=== PATIENT | female | born 1965 | race Caucasian/White ===

== ENCOUNTER 2022-11-28 14:44 | Emergency (ER) | payer OTHER, MEDICAID, SELFPAY ==
[2022-11-28] VITALS (15 sets, daily range): BP systolic 109–150; BP diastolic 55–67; PULSE 85–109; RESP 17–27; TEMP 36.9; O2SAT 95–98; BMI 49.6
--- NOTE | 2022-11-28 15:09 | DI.RAD.S_ITS ---
PROCEDURE: XR CHEST 1V INDICATIONS: chest pain TECHNIQUE: One view of the chest was acquired. COMPARISON: None. FINDINGS: Surgical changes and devices: None. Lungs and pleura: Blunting of left costophrenic angle is seen suggestive of trace left pleural effusion. No definite focal infiltrate. No gross pneumothorax. Mediastinum: Mediastinal contours appear normal. Heart size is enlarged. Bones and chest wall: No suspicious bony lesions. Overlying soft tissues appear unremarkable. IMPRESSION: Suggestion of trace left pleural effusion. No definite focal infiltrate. No gross pneumothorax. Dictated by: Montrell Kent M.D. on 11/28/2022 at 16:17 Approved by: Montrell Kent M.D. on 11/28/2022 at 16:17
[2022-11-28 15:27] LABS: Add Manual Diff / Slide Review NO; Basophils Absolute Auto 100 /uL (0-100); Basophils Percent Auto 0.7 % (0-2); Eosinophils Absolute Auto 400 /uL (0-450); Eosinophils Percent Auto 4.2 % (2-4); Hematocrit 39.4 % (36-46); Hemoglobin 12.5 g/dL (12.0-16.0); Lymphocytes Absolute Auto 1400 /uL (1100-4500); Lymphocytes Percent Auto 15.3 % (25-40); Mean Corpuscular HGB Conc 31.9 % (30-36); Mean Corpuscular Hemoglobin 27.3 PG (26-34); Mean Corpuscular Volume 85.5 fL (80-100); Monocytes Absolute Auto 500 /uL (0-900); Monocytes Percent Auto 4.8 % (3-14); Neutrophils Absolute Auto 7100 /uL (1500-7000); Platelet Count 351 X10^3/uL (150-400); Red Cell Distribution Width 14.5 % (11.6-14.8); White Blood Cell Count 9.5 X10^3/uL (4.5-11.0)
[2022-11-28 15:32] LABS: Prothrombin Time 11.3 SECONDS (10.1-12.7)
[2022-11-28 15:35] LABS: PTT Partial Thromboplastin Tim 31 SECONDS (26-36)
[2022-11-28 15:46] LABS: Alanine Aminotransferase 29 IU/L (<35); Albumin 3.9 g/dL (3.5-5.0); Albumin Globulin Ratio 1.3 (1.0-2.8); Alkaline Phosphatase 64 U/L (38-126); Aspartate Aminotransferase 25 IU/L (14-36); BUN Creatinine Ratio 32.1 (6-22); Bilirubin Total 0.3 mg/dL (0.2-1.3); Blood Urea Nitrogen 26 mg/dL (7-17); Carbon Dioxide 29 mmol/L (22-32); Chloride 99 mmol/L (98-107); Creatine Kinase 31 U/L (30-135); Estimated Glomerular Filt Rate > 60 mL/min (>60); Globulin 3.1 g/dL (1.7-4.1); Glucose 340 mg/dL (70-100); HEMOLYSIS < 15 (0-50); Lipase 101 U/L (23-300); Potassium 4.4 mmol/L (3.4-5.1); Sodium 137 mmol/L (137-145)
[2022-11-28 15:50] LABS: COVID19 -Nasal RAPID Negative (Negative)
[2022-11-28 15:57] LABS: Troponin I < 0.012 ng/mL (0.01-0.034)
--- NOTE | 2022-11-28 17:55 | ED.DIZZY ---
HPI - Dizziness General Chief Complaint: Dizziness Stated Complaint: Jaw pain, Dizzy Time Seen by Provider: 11/28/22 17:54 Source: patient Mode of arrival: Wheelchair History of Present Illness HPI Narrative: Patient 57-year-old female morbidly obese history of asthma and diabetes presenting today with 3 days of intermittent dizziness. She reports that she is been dizzy every time she stands up. However she waits she is stable able to walk. Today she woke up with left-sided ear pain and jaw pain. She feels like it might be a little bit swollen appear head she denies any dental pain no fevers or chills. She occasionally has palpitations but no real chest pain. She is not any more short of breath than normal no nausea vomiting. No numbness tingling or weakness. She is having no difficulty swallowing her managing her own secretions Related Data Allergies Allergy/AdvReac Type Severity Reaction Status Date / Time No Known Drug Allergies Allergy Verified 11/28/22 14:52 Review of Systems Review of Systems ROS Unobtainable: All systems reviewed & are unremarkable except as noted in HPI and below Patient History Social History Smoking Status: Never smoker Smoking Status: Never smoker Substance Use Type: does not use Exam Initial Vital Signs Initial Vital Signs: Vital Signs Temperature 98.4 F 11/28/22 14:53 Pulse Rate 98 H 11/28/22 14:53 Respiratory Rate 22 11/28/22 14:53 Blood Pressure 150/65 H 11/28/22 14:53 Pulse Oximetry 96 11/28/22 14:53 Oxygen Delivery Method Nasal Cannula 11/28/22 14:53 Oxygen Flow Rate 1 11/28/22 14:53 GENERAL: Alert 57-year-old female sitting at edge of bed HEENT: Head atraumatic,EOMI, pupils reactive, face symmetric, moist mucous membranes Inside mouth no dental cavities or dental abscess left cheek does appear swollen but she does not seem to notice it due to body habitus difficult to tell but no appreciated cervical lymphadenopathy CARDIOVASCULAR: Regular rate and rhythm without murmurs, rubs or gallops. RESPIRATORY: Breath sounds equal bilaterally, no wheezes rales or rhonchi. ABDOMEN: Soft, nontender. Normoactive bowel sounds all 4 quadrants. No guarding or rebound. EXTREMITIES: Normal range of motion, no clubbing or edema. Neurovascularly intact NEUROLOGICAL: Alert and oriented x4.Normal gait and speech. Cranial nerves II through XII grossly intact. Good [id number], good [id number], strength equal bilaterally, no dysarthria or aphasia, sensation in tact to soft touch bilaterally, no visual changes, no facial droop SKIN: Warm, dry, no laceration, no petechiae, no rashes or lesions. Course Orders Ordered: ED Orders 11/28/22 18:34 CT soft tissue neck w con Stat Discontinued Medications Aspirin (Aspirin 81 Mg Chew Tab) 324 mg PO NOW ONE Stop: 11/28/22 15:10 Last Admin: 11/28/22 15:48 Dose: Not Given Documented By: VALERIE Ketorolac Tromethamine (Ketorolac 30 Mg/Ml Vial) 15 mg IV NOW ONE Stop: 11/28/22 20:02 Last Admin: 11/28/22 20:06 Dose: 15 mg Documented By: HERNANDEZ Vital Signs Vital signs: Vital Signs - 8 hr 11/28/22 17:30 11/28/22 17:30 11/28/22 18:00 Pulse Rate 105 H 94 H Respiratory Rate 19 17 Blood Pressure 128/59 L Pulse Oximetry 97 97 Oxygen Delivery Method Nasal Cannula Nasal Cannula Oxygen Flow Rate 2 2 11/28/22 18:30 11/28/22 19:02 11/28/22 19:30 Pulse Rate 94 H 91 H 85 Respiratory Rate 20 22 22 Blood Pressure Pulse Oximetry 96 97 95 Oxygen Delivery Method Oxygen Flow Rate 11/28/22 20:00 11/28/22 20:27 11/28/22 20:27 Pulse Rate 90 87 Respiratory Rate 23 23 Blood Pressure 109/67 Pulse Oximetry 96 96 Oxygen Delivery Method Oxygen Flow Rate 11/28/22 20:30 Pulse Rate 91 H Respiratory Rate 27 H Blood Pressure Pulse Oximetry Oxygen Delivery Method Oxygen Flow Rate MDM - Dizziness Lab Data 11/28/22 15:15 11/28/22 15:15 Labs: Lab Results 11/28/22 11/28/22 11/28/22 Range/Units 15:15 15:15 15:15 WBC 9.5 (4.5-11.0) X10^3/uL RBC 4.60 (4.0-5.2) X10^6/uL Hgb 12.5 (12.0-16.0) g/dL Hct 39.4 (36-46) % MCV 85.5 (80-100) fL MCH 27.3 (26-34) PG MCHC 31.9 (30-36) % RDW 14.5 (11.6-14.8) % Plt Count 351 (150-400) X10^3/uL Neut % (Auto) 75.0 (50-75) % Lymph % (Auto) 15.3 L (25-40) % [place] % (Auto) 4.8 (3-14) % Eos % (Auto) 4.2 H (2-4) % Baso % (Auto) 0.7 (0-2) % Neut # (Auto) 7100 H (4192-7371) /uL Lymph # (Auto) 1400 (3671-5927) /uL [place] # (Auto) 500 (0-900) /uL Eos # (Auto) 400 (0-450) /uL Baso # (Auto) 100 (0-100) /uL PT 11.3 (10.1-12.7) SECONDS INR 1.0 (0.9-1.3) APTT 31 (26-36) SECONDS Sodium 137 (137-145) mmol/L Potassium 4.4 (3.4-5.1) mmol/L Chloride 99 (98-107) mmol/L Carbon Dioxide 29 (22-32) mmol/L BUN 26 H (7-17) mg/dL Creatinine 0.81 (0.52-1.04) mg/dL Estimated GFR > 60 (>60) mL/min BUN/Creatinine Ratio 32.1 H (6-22) Glucose 340 H (70-100) mg/dL Calcium 9.0 (8.4-10.2) mg/dL Magnesium 2.0 (1.6-2.3) mg/dL Total Bilirubin 0.3 (0.2-1.3) mg/dL AST 25 (14-36) IU/L ALT 29 (<35) IU/L Alkaline Phosphatase 64 (38-126) U/L Total Creatine Kinase 31 (30-135) U/L CK-MB (CK-2) TNP CK-MB (CK-2) Rel Index TNP Troponin I < 0.012 (0.01-0.034) ng/mL Total Protein 7.0 (6.3-8.2) g/dL Albumin 3.9 (3.5-5.0) g/dL Globulin 3.1 (1.7-4.1) g/dL Albumin/Globulin Ratio 1.3 (1.0-2.8) Lipase 101 (23-300) U/L SARS-CoV-2 (PCR) (Negative) 11/28/22 Range/Units 15:27 WBC (4.5-11.0) X10^3/uL RBC (4.0-5.2) X10^6/uL Hgb (12.0-16.0) g/dL Hct (36-46) % MCV (80-100) fL MCH (26-34) PG MCHC (30-36) % RDW (11.6-14.8) % Plt Count (150-400) X10^3/uL Neut % (Auto) (50-75) % Lymph % (Auto) (25-40) % [place] % (Auto) (3-14) % Eos % (Auto) (2-4) % Baso % (Auto) (0-2) % Neut # (Auto) (0453-2182) /uL Lymph # (Auto) (1522-1335) /uL [place] # (Auto) (0-900) /uL Eos # (Auto) (0-450) /uL Baso # (Auto) (0-100) /uL PT (10.1-12.7) SECONDS INR (0.9-1.3) APTT (26-36) SECONDS Sodium (137-145) mmol/L Potassium (3.4-5.1) mmol/L Chloride (98-107) mmol/L Carbon Dioxide (22-32) mmol/L BUN (7-17) mg/dL Creatinine (0.52-1.04) mg/dL Estimated GFR (>60) mL/min BUN/Creatinine Ratio (6-22) Glucose (70-100) mg/dL Calcium (8.4-10.2) mg/dL Magnesium (1.6-2.3) mg/dL Total Bilirubin (0.2-1.3) mg/dL AST (14-36) IU/L ALT (<35) IU/L Alkaline Phosphatase (38-126) U/L Total Creatine Kinase (30-135) U/L CK-MB (CK-2) CK-MB (CK-2) Rel Index Troponin I (0.01-0.034) ng/mL Total Protein (6.3-8.2) g/dL Albumin (3.5-5.0) g/dL Globulin (1.7-4.1) g/dL Albumin/Globulin Ratio (1.0-2.8) Lipase (23-300) U/L SARS-CoV-2 (PCR) Negative (Negative) Urine Dip Bedside Urine Glucose 1000 mg/dl Bedside Urine Bilirubin - Negative Bedside Urine Ketone - Negative Urine Specific [place] 1.020 Bedside Urine Occult Blood - Negative Bedside Urine pH 5.5 Bedside Urine Protein - Negative Bedside Urine Urobilinogen - Negative Bedside Urine Nitrite - Negative Bedside Urine Leukocytes - Negative Esterase Imaging Data Chest x-ray: Radiologist's Impression: PROCEDURE:? XR CHEST 1V ? INDICATIONS:? chest pain ? TECHNIQUE:? One view of the chest was acquired.? ? COMPARISON:? None. ? FINDINGS:? ? Surgical changes and devices:? None.? ? Lungs and pleura:? Blunting of left costophrenic angle is seen suggestive of trace left pleural effusion.? No definite focal infiltrate.? No gross pneumothorax. ? Mediastinum:? Mediastinal contours appear normal.? Heart size is enlarged.? ? Bones and chest wall:? No suspicious bony lesions.? Overlying soft tissues appear unremarkable.? ? IMPRESSION:? Suggestion of trace left pleural effusion.? No definite focal infiltrate.? No gross pneumothorax. ? ? Dictated by: Montrell Kent M.D. on 11/28/2022 at 16:17 ? ? st soft tissue: Radiologist's Impression: PROCEDURE:? CT SOFT TISSUE NECK W CON ? INDICATIONS:? left sided swelling and pain ? TECHNIQUE:? After the administration of intravenous contrast, 3.0 mm axial sections acquired from the sella to the aortic arch.? Additional oblique axial 3.0 mm sections acquired through the pharynx.? 3 mm thick coronal and sagittal reformats were generated.? For radiation dose reduction, the following was used:? automated exposure control.? ? COMPARISON:? None. ? FINDINGS:? Image quality:? Excellent.? ? Lymph nodes:? No enlarged lymph nodes seen throughout the neck.? ? Vessels:? Visualized vasculature appears patent.? ? Neck spaces:? The oropharynx, nasopharynx, and pharynx demonstrate no mucosal lesions.? The vocal cords, false vocal cords, pyriform sinuses, epiglottis, vallecula, and tongue base all appear normal.? Extramucosal spaces appear unremarkable.? ? Glands:? The left parotid gland is slightly more prominent in size compared to the right side.? No significant adjacent subcutaneous fat stranding overlying skin thickening is noted.? No discrete parotid gland mass is seen.? The submandibular glands appear normal.? Thyroid gland is within normal limits. ? Miscellaneous:? Visualized brain and orbits appear normal.? Lung apices appear clear.? Superficial soft tissues appear normal. ? Bones:? No suspicious bony lesions.? Visualized sinuses and mastoids appear unremarkable. ? ? ? IMPRESSION:? 1. Finding may represent mild left-sided parotiditis, suggest clinical correlation. ? 2. No soft tissue abscess collection is seen.? Airway is patent. ? 3. No neck soft tissue lymphadenopathy by size criteria. ? ? Dictated by: Montrell Kent M.D. on 11/28/2022 at 19:18 ?? ECG Data Interpretation: Normal sinus rhythm rate 94 FL interval 154 QRS [address] changes or ischemia MDM Narrative Medical decision making narrative: Patient is a 57-year-old female morbid obesity asthma presenting today with left-sided jaw pain she pain and dizziness upon standing. Due to body habitus difficult to tell if she is actually swollen but inside her cheek is more swollen. No airway compromise. CT soft tissue neck does confirm a parotitis. She is no leukocytosis she is afebrile no evidence of sepsis. This can be treated with supportive care no need for antibiotics. She is dizzy when she stands up and then it gets better. No hypotension. She has been drinking fluids. She is given Toradol which does seem to help. Other blood work is otherwise reassuring no electrolyte abnormality LISS liver enzymes elevated troponin. Discharge Plan Departure Patient Disposition: Home Clinical Impression: Acute parotitis Instructions: DI for Parotitis-Adult Activity Restrictions/Additional Instructions: *You have been diagnosed with parotitis *What to do: At this time may try ice sucking on sour candies and anti-inflammatory medications. Hopefully this improves over the next couple of days. No need for antibiotics at this time. Be sure to stay hydrated *Continue to take medications as directed Ibuprofen 600 mg every 6 hours if needed for [id number] pain *Follow up with your primary care provider in 2-3 days or call [phone] *Return to ER if you should have increasing pain swelling fever inability to swallow own spit or any new, worsening or concerning symptoms Stand Alone Forms: Patient Portal/API
--- NOTE | 2022-11-28 18:34 | DI.CT.S_ITS ---
PROCEDURE: CT SOFT TISSUE NECK W CON INDICATIONS: left sided swelling and pain TECHNIQUE: After the administration of intravenous contrast, 3.0 mm axial sections acquired from the sella to the aortic arch. Additional oblique axial 3.0 mm sections acquired through the pharynx. 3 mm thick coronal and sagittal reformats were generated. For radiation dose reduction, the following was used: automated exposure control. COMPARISON: None. FINDINGS: Image quality: Excellent. Lymph nodes: No enlarged lymph nodes seen throughout the neck. Vessels: Visualized vasculature appears patent. Neck spaces: The oropharynx, nasopharynx, and pharynx demonstrate no mucosal lesions. The vocal cords, false vocal cords, pyriform sinuses, epiglottis, vallecula, and tongue base all appear normal. Extramucosal spaces appear unremarkable. Glands: The left parotid gland is slightly more prominent in size compared to the right side. No significant adjacent subcutaneous fat stranding overlying skin thickening is noted. No discrete parotid gland mass is seen. The submandibular glands appear normal. Thyroid gland is within normal limits. Miscellaneous: Visualized brain and orbits appear normal. Lung apices appear clear. Superficial soft tissues appear normal. Bones: No suspicious bony lesions. Visualized sinuses and mastoids appear unremarkable. IMPRESSION: 1. Finding may represent mild left-sided parotiditis, suggest clinical correlation. 2. No soft tissue abscess collection is seen. Airway is patent. 3. No neck soft tissue lymphadenopathy by size criteria. Dictated by: Montrell Kent M.D. on 11/28/2022 at 19:18 Approved by: Montrell Kent M.D. on 11/28/2022 at 19:22
[2022-11-28] MEDS: KETOROLAC 30 MG/ML VIAL 15 MG IV (20:06)
== END 2022-11-28 20:53 | disposition home or self-care (01) ==
PROVIDERS: Emergency Medicine; Emergency Provider Emergency Medicine
DX: K11.21 Acute sialoadenitis (principal); R07.9 Chest pain, unspecified; H92.02 Otalgia, left ear; R00.2 Palpitations; Z20.822 Contact with and (suspected) exposure to COVID-19
CPT/HCPCS: 36415; 70491; 71045; 80053; 81003; 82550; 83690; 83735; 84484; 85025; 85610; 85730; 87635; 93005; 93010; 96374; 99284; 99285; C9803; J1885

== ENCOUNTER 2025-03-02 19:49 | Inpatient (IN) | payer MEDICARE, SELFPAY ==
[2025-03-02] VITALS (15 sets, daily range): BP systolic 93–136; BP diastolic 45–62; PULSE 92–119; RESP 14–39; TEMP 36.9; O2SAT 97–99; BMI 44.6
--- NOTE | 2025-03-02 20:23 | DI.RAD.S_ITS ---
PROCEDURE: XR CHEST 1V INDICATIONS: weakness TECHNIQUE: One view of the chest was acquired. COMPARISON: [facility], CR, XR CHEST 1V, 11/28/2022, 15:16. FINDINGS: Surgical changes and devices: None. Lungs and pleura: Lungs are clear. No pleural effusions or pneumothorax. Mediastinum: Mediastinal contours appear normal. Heart size is enlarged. Bones and chest wall: No suspicious bony lesions. Overlying soft tissues appear unremarkable. IMPRESSION: No acute cardiopulmonary abnormality is seen. Dictated by: Toro Valdes M.D. on 03/02/2025 at 21:04 Approved by: Toro Valdes M.D. on 03/02/2025 at 21:04
--- NOTE | 2025-03-02 20:25 | ED.GENADULT ---
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 States that over the past week she has been feeling slight fatigue weakness and dizziness, states that she felt like she was going to pass out today, states that she did check her sugar and was high at 465. She also states that she wears 2 L nasal cannula at baseline. Otherwise she is not complaining of any actual headache visual disturbance chest pain shortness of breath fever chills nausea vomiting abdominal pain or any other GI/ symptoms time. Related Data Allergies Allergy/AdvReac Type Severity Reaction Status Date / Time No Known Drug Allergies Allergy Verified 11/28/22 14:52 Review of Systems Review of Systems Narrative: General: Positive generalized fatigue, weakness, elevated blood sugars Denies fever, chills, weight loss HEENT: Denies headache, eye drainage, eye irritation, head trauma, sore throat, voice change Cardiovascular: Denies any chest pain, palpitations, tachycardia Respiratory: Denies any shortness of breath, cough, wheeze, stridor GI/: Denies any abdominal pain, nausea, vomiting, diarrhea, bright red blood per rectum, melanotic stools, urinary frequency, urinary retention, dysuria, hematuria MSK: Denies any joint pain, muscle pains, swelling Skin: Denies any rashes, lesions, discoloration Neuro: Denies any headache, lightheadedness, dizziness, fainting, weakness Psych: Denies SI/HI Patient History Smoking Status: Never smoker Exam Narrative Exam Narrative: General: Cooperative, well-developed, not in acute distress HEENT: Normocephalic, atraumatic, PERRLA, normal sclera, eyelids normal Neck: Active full range of motion, atraumatic Chest: Normal to inspection, negative crepitus, no overlying erythema ecchymosis Respiratory: Patient on 2 L nasal cannula at baseline Normal respiratory effort, not in acute respiratory distress, clear to auscultation bilaterally negative cough, wheeze, tachypnea, rhonchi, rales Cardiology: Regular rate rhythm negative gallop, murmur, rubs GI/: No tenderness to palpation, soft, non rigid, normal to inspection, exam deferred MSK: Full active range of motion in all 4 extremities, atraumatic, no tenderness to palpation of any bony prominences Skin: No rashes or lesions noted Neuro: Alert awake oriented x3, moves all 4 extremities spontaneously, cranial nerves intact, able to answer all questions appropriately follows commands appropriately Psych: Cooperative, negative suicidal or homicidal ideations Initial Vital Signs Initial Vital Signs: Vital Signs Temperature 98.5 F 03/02/25 19:53 Pulse Rate 119 H 03/02/25 19:53 Respiratory Rate 22 03/02/25 19:53 Blood Pressure 101/58 L 03/02/25 19:53 Pulse Oximetry 98 03/02/25 19:53 Oxygen Delivery Method Nasal Cannula 03/02/25 19:53 Oxygen Flow Rate 2 03/02/25 19:53 Course Orders Ordered: ED Orders 03/02/25 20:23 XR chest 1V Stat EKG-12 Lead Stat VBG [Venous Blood Gas] STAT 03/02/25 20:24 Urinalysis and Microscopic Stat 03/02/25 20:36 Venous Blood Gas Routine 03/02/25 20:38 A1C [Hemoglobin A1C% w Est Avg Glu] Stat Complete Blood Count AUTO DIFF Stat Comprehensive Metabolic Panel Stat Ketones (Beta-Hydroxybutyrate) Stat Lipase Stat MAG [Magnesium] Stat Troponin & CK Cardiac Panel Stat Sodium Chloride (Normal Saline 0.9%) 1,000 mls @ 1,000 mls/hr IV BOLUS ONE Stop: 03/02/25 21:22 Last Admin: 03/02/25 20:45 Dose: 1,000 mls/hr Documented By: LM Discontinued Medications Ondansetron HCl (Ondansetron 4 Mg/2 Ml Inj) 4 mg IV NOW ONE Stop: 03/02/25 20:24 Vital Signs Vital signs: Vital Signs - 8 hr 03/02/25 19:53 03/02/25 19:59 Temperature 98.5 F Pulse Rate 119 H 114 H Respiratory Rate 22 22 Blood Pressure 101/58 L 114/56 L Pulse Oximetry 98 97 Oxygen Delivery Method Nasal Cannula Nasal Cannula Oxygen Flow Rate 2 2 Medical Decision Making Differential Diagnosis Differential Diagnosis: ACS, pneumonia, electrolyte abnormality, DKA, diverticulitis, diverticular Lab Data 03/02/25 20:38 03/02/25 20:38 Labs: Lab Results 03/02/25 03/02/25 03/02/25 Range/Units 20:07 20:36 20:38 WBC 10.4 (4.5-11.0) X10^3/uL RBC 3.68 L (4.0-5.2) X10^6/uL Hgb 8.3 L (12.0-16.0) g/dL Hct 26.2 L (36-46) % MCV 71.2 L (80-100) fL MCH 22.5 L (26-34) PG MCHC 31.7 (30-36) % RDW 17.2 H (11.6-14.8) % Plt Count 492 H (150-400) X10^3/uL Neut % (Auto) 75.0 (50-75) % Lymph % (Auto) 15.5 L (25-40) % [place] % (Auto) 4.9 (3-14) % Eos % (Auto) 4.0 (2-4) % Baso % (Auto) 0.6 (0-2) % Neut # (Auto) 7800 H (2018-7337) /uL Lymph # (Auto) 1600 (3969-4090) /uL [place] # (Auto) 500 (0-900) /uL Eos # (Auto) 400 (0-450) /uL Baso # (Auto) 100 (0-100) /uL VBG pH 7.46 H (7.33-7.43) VBG pCO2 34.3 L (45-50) mmHg VBG pO2 38 (35-45) mmHg VBG HCO3 24 (24-28) mmol/L VBG Total CO2 23 L (24-29) mmol/L VBG O2 Saturation 76 H (70-75) % VBG Base Excess 0.8 (0-4) mmol/L Sodium 133 L (137-145) mmol/L Potassium 4.3 (3.4-5.1) mmol/L Chloride 98 (98-107) mmol/L Carbon Dioxide 26 (22-32) mmol/L BUN 36 H (7-17) mg/dL Creatinine 1.55 H (0.52-1.04) mg/dL Estimated GFR 38 L (>60) mL/min BUN/Creatinine Ratio 23.2 H (6-22) Glucose 290 H (70-99) mg/dL POC Whole Bld Glucose 322 H (70-99) mg/dL Hemoglobin A1c 8.0 H (4.0-6.0) % Calcium 9.2 (8.4-10.2) mg/dL Magnesium 2.3 (1.6-2.3) mg/dL Total Bilirubin 0.2 (0.2-1.3) mg/dL AST 28 (14-36) IU/L ALT 27 (<35) IU/L Alkaline Phosphatase 71 (38-126) U/L Total Creatine Kinase 37 (30-135) U/L Troponin I < 0.012 (0.01-0.034) ng/mL Total Protein 6.9 (6.3-8.2) g/dL Albumin 4.0 (3.5-5.0) g/dL Globulin 2.9 (1.7-4.1) g/dL Albumin/Globulin Ratio 1.4 (1.0-2.8) Lipase 149 (23-300) U/L Ketones 0.09 (<0.27) mmol/L Point of Care Testing Glucose POC 322 Point of care testing: Point of Care Testing Glucose POC 322 Imaging Data Chest x-ray: Radiologist's Impression: [address] [address] XRay Report Signed Patient: Vivien Santos MR#: [id number] : 1965 Acct:[id number] Age/Sex: 59 / F Date of Service: 03/02/25 Loc: ED Accession Number: [id number] Procedure: XR chest 1V Ordering Provider: Jhonathan Elizabeth D.O. PROCEDURE: XR CHEST 1V INDICATIONS: weakness TECHNIQUE: One view of the chest was acquired. COMPARISON: [facility], , XR CHEST 1V, 11/28/2022, 15:16. FINDINGS: Surgical changes and devices: None. Lungs and pleura: Lungs are clear. No pleural effusions or pneumothorax. Mediastinum: Mediastinal contours appear normal. Heart size is enlarged. Bones and chest wall: No suspicious bony lesions. Overlying soft tissues appear unremarkable. IMPRESSION: No acute cardiopulmonary abnormality is seen. CTA abdomen: Radiologist's Impression: [address] [address] [address] Scan Report Signed Patient: Vivien Santos MR#: [id number] : 1965 Acct:[id number] Age/Sex: 59 / F Date of Service: 03/02/25 Loc: ED Accession Number: [id number] Procedure: CT angio abdomen pelvis Ordering Provider: Jhonathan Elizabeth D.O. PROCEDURE: CT ANGIO ABDOMEN PELVIS INDICATIONS: Abdominal pain with positive Hemoccult TECHNIQUE: After the administration of intravenous contrast, 2.5 mm sections acquired from the diaphragm to the iliac crests. 10 mm maximum intensity projection (MIP) coronal and sagittal reformats were then performed. For radiation dose reduction, the following was used: automated exposure control. COMPARISON: None. FINDINGS: Image quality: Suboptimal due to contrast timing Abdominal aorta: No aortic aneurysm or evidence of acute aortic syndrome. Mesenteric arteries: Patent without hemodynamically significant stenosis. Renal arteries: Patent without hemodynamically significant stenosis. Lower chest: Unremarkable. ABDOMEN: Liver: No solid mass. Severe steatosis. Edge blunting. Gallbladder: No radiopaque gallstones or wall thickening. Biliary ducts: No biliary dilation. Pancreas: No ductal dilation. Spleen: Size is within normal limits. Adrenal Glands: No adrenal nodules. Kidneys and Ureters: No hydronephrosis. No solid mass. No complex renal cystic lesion which requires follow up. Stomach and Bowel: Normal colonic caliber, without significant wall thickening. No significant diverticular disease. No obstructing mass. Peritoneum: No abnormal intraperitoneal fluid. No free air. Ventral Wall: No hernia. Abdominal Nodes: No retroperitoneal or mesenteric adenopathy by size criteria. Vessels: Aorta, as above. Normal IVC. PELVIS: Pelvic Organs: Unremarkable. Bladder: Unremarkable. Pelvic Nodes: No enlarged lymph nodes. Miscellaneous: No inguinal hernias are seen. Bones: No aggressive osseous abnormality. IMPRESSION: Suboptimal due to contrast timing. No definite evidence of active hemorrhage. No significant diverticular disease. Consider outpatient GI referral for a diagnostic colonoscopy in the setting of GI bleeding. Severe hepatic steatosis and edge blunting, possibly early cirrhotic morphology. ECG Data Interpretation: EKG interpreted ED physician sinus 99 beats per minute QTC 444, left axis deviation nonspecific ST changes no STEMI MDM Narrative Medical decision making narrative: Patient is a 59-year-old female with a past medical history of diabetes, AFib on Eliquis, chronic oxygen use for unknown reason according to patient, normally requires 2 L nasal cannula. Comes into the ED from home for evaluation of generalized fatigue weakness light-headedness ongoing persistent for the past week. She denies any trauma or falls denies any chest pain shortness breath at this time. She did state that she checked her sugars at home and it was high. Patient not in DKA per workup here. Patient is at her baseline 2 L nasal cannula. Patient without any leukocytosis, patient is noted to have slight LISS at 1.55, fluids have already been ordered for this, troponins negative, however lab work does show mild anemia at 8.3, patient states that she has had intermittent darker stools over the past month. But denies any bright red blood per rectum. Patient with faint Hemoccult positive. Patient with mild belly pain therefore CTA angio abdomen was ordered did not show any active diverticular bleed, however was suboptimal due to timing. At this time I do not believe patient will require transfusion but her persistent and worsening symptoms possibly secondary to her anemia. 2245: Discussed case with general surgeon Dr. Jin, does state that he is willing to do colonoscopy given patient with lower GI bleed. States that he will discuss this in the morning for planning for prep. In the meantime admit to medicine. The patient's management plan was discussed Dr. Briggs, who agrees to admit the patient to their service and assumes care of this patient at this time. Full admission orders will be placed by the primary team. Discharge Plan Departure Patient Disposition: Admitted As Inpatient Clinical Impression: Acute lower GI bleeding, Anemia Admit Date/Time: 03/02/25 22:52 Admit Provider: Cisco Briggs
--- NOTE | 2025-03-02 20:30 | EKG_ITS ---
[address] [address] Test Date: 2025-03-02 Pat Name: Vivien Santos Department: [facility] Room: Gender: Female Cryptozoologist: MARTIN : 1965 Requested By: Order Number: [id number] Reading MD: Tobin Bowman Measurements Intervals [place] Rate: 99 P: 85 NC: 180 QRS: -25 QRSD: 86 T: 34 QT: 346 QTc: 444 Interpretive Statements Normal sinus rhythm Possible Anterolateral infarct , age undetermined Electronically Signed On 03-18-2025 8:05:14 PDT by Tobin Bowman
[2025-03-02 20:40] LABS: Base Excess VBG 0.8 mmol/L (0-4); HCO3 VBG 24 mmol/L (24-28); Oxygen Saturation VBG 76 % (70-75); PCO2 VBG 34.3 mmHg (45-50); PO2 VBG 38 mmHg (35-45); Total CO2 VBG 23 mmol/L (24-29); pH VBG 7.46 (7.33-7.43)
[2025-03-02] MEDS: SODIUM CHLORIDE 0.9% 1,000 ML 1000 ML IV (20:45)
[2025-03-02 20:53] LABS: Add Manual Diff / Slide Review NO; Hematocrit 26.2 % (36-46); Hemoglobin 8.3 g/dL (12.0-16.0); Lymphocytes Absolute Auto 1600 /uL (1100-4500); Mean Corpuscular HGB Conc 31.7 % (30-36); Mean Corpuscular Hemoglobin 22.5 PG (26-34); Mean Corpuscular Volume 71.2 fL (80-100); Platelet Count 492 X10^3/uL (150-400)
[2025-03-02 21:03] LABS: Alanine Aminotransferase 27 IU/L (<35); Albumin 4.0 g/dL (3.5-5.0); Albumin Globulin Ratio 1.4 (1.0-2.8); Alkaline Phosphatase 71 U/L (38-126); Blood Urea Nitrogen 36 mg/dL (7-17); Calcium 9.2 mg/dL (8.4-10.2); Carbon Dioxide 26 mmol/L (22-32); Chloride 98 mmol/L (98-107); Creatine Kinase 37 U/L (30-135); Estimated Glomerular Filt Rate 38 mL/min (>60); Globulin 2.9 g/dL (1.7-4.1); Glucose 290 mg/dL (70-99); HEMOLYSIS < 15 (0-50); Lipase 149 U/L (23-300); Potassium 4.3 mmol/L (3.4-5.1); Sodium 133 mmol/L (137-145); Total Protein 6.9 g/dL (6.3-8.2)
[2025-03-02 21:07] LABS: Hemoglobin A1C% w Est Avg Glu 8.0 % (4.0-6.0); Magnesium 2.3 mg/dL (1.6-2.3)
[2025-03-02 21:10] LABS: Ketones (Beta-Hydroxybutyrate) 0.09 mmol/L (<0.27)
[2025-03-02 21:17] LABS: Troponin I < 0.012 ng/mL (0.01-0.034)
--- NOTE | 2025-03-02 21:35 | DI.CT.S_ITS ---
PROCEDURE: CT ANGIO ABDOMEN PELVIS INDICATIONS: Abdominal pain with positive Hemoccult TECHNIQUE: After the administration of intravenous contrast, 2.5 mm sections acquired from the diaphragm to the iliac crests. 10 mm maximum intensity projection (MIP) coronal and sagittal reformats were then performed. For radiation dose reduction, the following was used: automated exposure control. COMPARISON: None. FINDINGS: Image quality: Suboptimal due to contrast timing Abdominal aorta: No aortic aneurysm or evidence of acute aortic syndrome. Mesenteric arteries: Patent without hemodynamically significant stenosis. Renal arteries: Patent without hemodynamically significant stenosis. Lower chest: Unremarkable. ABDOMEN: Liver: No solid mass. Severe steatosis. Edge blunting. Gallbladder: No radiopaque gallstones or wall thickening. Biliary ducts: No biliary dilation. Pancreas: No ductal dilation. Spleen: Size is within normal limits. Adrenal Glands: No adrenal nodules. Kidneys and Ureters: No hydronephrosis. No solid mass. No complex renal cystic lesion which requires follow up. Stomach and Bowel: Normal colonic caliber, without significant wall thickening. No significant diverticular disease. No obstructing mass. Peritoneum: No abnormal intraperitoneal fluid. No free air. Ventral Wall: No hernia. Abdominal Nodes: No retroperitoneal or mesenteric adenopathy by size criteria. Vessels: Aorta, as above. Normal IVC. PELVIS: Pelvic Organs: Unremarkable. Bladder: Unremarkable. Pelvic Nodes: No enlarged lymph nodes. Miscellaneous: No inguinal hernias are seen. Bones: No aggressive osseous abnormality. IMPRESSION: Suboptimal due to contrast timing. No definite evidence of active hemorrhage. No significant diverticular disease. Consider outpatient GI referral for a diagnostic colonoscopy in the setting of GI bleeding. Severe hepatic steatosis and edge blunting, possibly early cirrhotic morphology. Dictated by: Toro Valdes M.D. on 03/02/2025 at 22:17 Approved by: Toro Valdes M.D. on 03/02/2025 at 22:20
[2025-03-02 22:31] LABS: Appearance Urine UA CLEAR; Bilirubin Urine UA NEGATIVE (NEGATIVE); Color Urine UA YELLOW; Glucose Urine UA 3+ g/dL (Negative); Ketones Urine UA NEGATIVE (NEGATIVE); Leukocyte Esterase Urine UA NEGATIVE (NEGATIVE); Nitrite Urine UA NEGATIVE (Negative); Occult Blood Urine UA NEGATIVE (Negative); Protein Urine UA NEGATIVE (Negative); Specific Gravity Urine UA 1.010 (1.000-1.035); Urobilinogen Urine UA 0.2 E.U./dL (0.2)
[2025-03-02 22:34] LABS: pH Urine UA 5.5 (4.5-8.0)
[2025-03-02 22:40] LABS: Culture Indicated Urine Cult Not Indicated
--- NOTE | 2025-03-02 23:06 | ED_ITS ---
HPI - General Adult General Chief complaint: Diabetic Problem Stated complaint: 465 Sugar Level, Diabetic Time Seen by Provider: 03/02/25 20:23 Source: patient Mode of arrival: Wheelchair Related Data Allergies Allergy/AdvReac Type Severity Reaction Status Date / Time No Known Drug Allergies Allergy Verified 11/28/22 14:52 Patient History Social History Smoking Status: Never smoker Smoking Status: Never smoker Exam Initial Vital Signs Initial Vital Signs: Vital Signs Temperature 98.5 F 03/02/25 19:53 Pulse Rate 119 H 03/02/25 19:53 Respiratory Rate 22 03/02/25 19:53 Blood Pressure 101/58 L 03/02/25 19:53 Pulse Oximetry 98 03/02/25 19:53 Oxygen Delivery Method Nasal Cannula 03/02/25 19:53 Oxygen Flow Rate 2 03/02/25 19:53 Course Orders Ordered: ED Orders 03/02/25 20:23 XR chest 1V Stat EKG-12 Lead Stat VBG [Venous Blood Gas] STAT 03/02/25 20:36 Venous Blood Gas Routine 03/02/25 20:38 A1C [Hemoglobin A1C% w Est Avg Glu] Stat Complete Blood Count AUTO DIFF Stat Comprehensive Metabolic Panel Stat Ketones (Beta-Hydroxybutyrate) Stat Lipase Stat MAG [Magnesium] Stat Troponin & CK Cardiac Panel Stat 03/02/25 21:35 CT angio abdomen pelvis Stat 03/02/25 22:27 Urinalysis and Microscopic Stat Acetaminophen (Acetaminophen 325 Mg Tablet) 650 mg PO Q6H PRN PRN Reason: Fever/Mild Pain (1-3) Hydromorphone HCl (Hydromorphone Hcl 0.5 Mg/0.5 Ml Syringe) 0.5 mg IV Q2H PRN PRN Reason: Pain, Severe (7-10) Dextrose/Sodium Chloride (Dextrose 5%-0.9% Ns) 1,000 mls @ 100 mls/hr IV CONT RAVINDER Naloxone HCl (Naloxone 0.4 Mg/Ml Vial) 0.2 mg IV Q2MIN PRN PRN Reason: Opiate Reversal Ondansetron HCl (Ondansetron 4 Mg/2 Ml Inj) 4 mg IV Q8HR PRN PRN Reason: Nausea And Vomiting Pantoprazole Sodium (Pantoprazole 40 Mg Vial) 40 mg IV DAILY RAVINDER Discontinued Medications Sodium Chloride (Normal Saline 0.9%) 1,000 mls @ 1,000 mls/hr IV BOLUS ONE Stop: 03/02/25 21:22 Last Infusion: 03/02/25 22:00 Dose: Infused Documented By: Admin: 03/02/25 20:45 Dose: 1,000 mls/hr Documented By: LOUISE Ondansetron HCl (Ondansetron 4 Mg/2 Ml Inj) 4 mg IV NOW ONE Stop: 03/02/25 20:24 Vital Signs Vital signs: Vital Signs - 8 hr 03/02/25 19:53 03/02/25 19:59 03/02/25 20:17 Temperature 98.5 F Pulse Rate 119 H 114 H 102 H Respiratory Rate 22 22 14 Blood Pressure 101/58 L 114/56 L Pulse Oximetry 98 97 97 Oxygen Delivery Method Nasal Cannula Nasal Cannula Oxygen Flow Rate 2 2 03/02/25 20:18 03/02/25 20:18 03/02/25 20:30 Temperature Pulse Rate 99 H 97 H Respiratory Rate 20 30 H Blood Pressure 121/58 L Pulse Oximetry 97 97 Oxygen Delivery Method Oxygen Flow Rate 03/02/25 20:30 03/02/25 21:00 03/02/25 21:00 Temperature Pulse Rate 96 H Respiratory Rate 20 Blood Pressure 116/54 L 114/55 L Pulse Oximetry 98 Oxygen Delivery Method Oxygen Flow Rate 03/02/25 21:30 03/02/25 21:31 03/02/25 21:31 Temperature Pulse Rate 93 H 97 H Respiratory Rate 39 H 25 H Blood Pressure 93/49 L Pulse Oximetry 99 98 Oxygen Delivery Method Oxygen Flow Rate 03/02/25 21:32 03/02/25 21:32 03/02/25 21:59 Temperature Pulse Rate 92 H 94 H Respiratory Rate 20 18 Blood Pressure 98/45 L Pulse Oximetry 99 99 Oxygen Delivery Method Oxygen Flow Rate 03/02/25 21:59 03/02/25 22:00 03/02/25 22:00 Temperature Pulse Rate 94 H Respiratory Rate 17 Blood Pressure 106/51 L 115/56 L Pulse Oximetry 99 Oxygen Delivery Method Oxygen Flow Rate 03/02/25 22:24 03/02/25 22:24 03/02/25 22:30 Temperature Pulse Rate 109 H 97 H Respiratory Rate 30 H 16 Blood Pressure 136/62 Pulse Oximetry 98 98 Oxygen Delivery Method Oxygen Flow Rate 03/02/25 22:31 03/02/25 22:31 Temperature Pulse Rate 98 H Respiratory Rate 22 Blood Pressure 120/56 L Pulse Oximetry 99 Oxygen Delivery Method Oxygen Flow Rate Medical Decision Making Lab Data 03/02/25 20:38 03/02/25 20:38 Labs: Lab Results 03/02/25 03/02/25 03/02/25 Range/Units 20:07 20:36 20:38 WBC 10.4 (4.5-11.0) X10^3/uL RBC 3.68 L (4.0-5.2) X10^6/uL Hgb 8.3 L (12.0-16.0) g/dL Hct 26.2 L (36-46) % MCV 71.2 L (80-100) fL MCH 22.5 L (26-34) PG MCHC 31.7 (30-36) % RDW 17.2 H (11.6-14.8) % Plt Count 492 H (150-400) X10^3/uL Neut % (Auto) 75.0 (50-75) % Lymph % (Auto) 15.5 L (25-40) % [place] % (Auto) 4.9 (3-14) % Eos % (Auto) 4.0 (2-4) % Baso % (Auto) 0.6 (0-2) % Neut # (Auto) 7800 H (5053-6447) /uL Lymph # (Auto) 1600 (5793-5030) /uL [place] # (Auto) 500 (0-900) /uL Eos # (Auto) 400 (0-450) /uL Baso # (Auto) 100 (0-100) /uL VBG pH 7.46 H (7.33-7.43) VBG pCO2 34.3 L (45-50) mmHg VBG pO2 38 (35-45) mmHg VBG HCO3 24 (24-28) mmol/L VBG Total CO2 23 L (24-29) mmol/L VBG O2 Saturation 76 H (70-75) % VBG Base Excess 0.8 (0-4) mmol/L Sodium 133 L (137-145) mmol/L Potassium 4.3 (3.4-5.1) mmol/L Chloride 98 (98-107) mmol/L Carbon Dioxide 26 (22-32) mmol/L BUN 36 H (7-17) mg/dL Creatinine 1.55 H (0.52-1.04) mg/dL Estimated GFR 38 L (>60) mL/min BUN/Creatinine Ratio 23.2 H (6-22) Glucose 290 H (70-99) mg/dL POC Whole Bld Glucose 322 H (70-99) mg/dL Hemoglobin A1c 8.0 H (4.0-6.0) % Calcium 9.2 (8.4-10.2) mg/dL Magnesium 2.3 (1.6-2.3) mg/dL Total Bilirubin 0.2 (0.2-1.3) mg/dL AST 28 (14-36) IU/L ALT 27 (<35) IU/L Alkaline Phosphatase 71 (38-126) U/L Total Creatine Kinase 37 (30-135) U/L Troponin I < 0.012 (0.01-0.034) ng/mL Total Protein 6.9 (6.3-8.2) g/dL Albumin 4.0 (3.5-5.0) g/dL Globulin 2.9 (1.7-4.1) g/dL Albumin/Globulin Ratio 1.4 (1.0-2.8) Lipase 149 (23-300) U/L Urine Color Urine Appearance Urine pH (4.5-8.0) Ur Specific [place] (1.000-1.035) Urine Protein (Negative) Urine Glucose (UA) (Negative) g/dL Urine Ketones (NEGATIVE) Urine Occult Blood (Negative) Urine Nitrate (Negative) Urine Bilirubin (NEGATIVE) Urine Urobilinogen (0.2) E.U./dL Ur Leukocyte Esterase (NEGATIVE) Urine RBC (0-5/HPF) Urine WBC (0-5/HPF) Ur Squamous Epith Cells (0-5/HPF) Urine Bacteria (None) Ur Culture Indicated? Vol Urine Centrifuged Ketones 0.09 (<0.27) mmol/L 03/02/25 Range/Units 22:27 WBC (4.5-11.0) X10^3/uL RBC (4.0-5.2) X10^6/uL Hgb (12.0-16.0) g/dL Hct (36-46) % MCV (80-100) fL MCH (26-34) PG MCHC (30-36) % RDW (11.6-14.8) % Plt Count (150-400) X10^3/uL Neut % (Auto) (50-75) % Lymph % (Auto) (25-40) % [place] % (Auto) (3-14) % Eos % (Auto) (2-4) % Baso % (Auto) (0-2) % Neut # (Auto) (2191-5714) /uL Lymph # (Auto) (3334-9944) /uL [place] # (Auto) (0-900) /uL Eos # (Auto) (0-450) /uL Baso # (Auto) (0-100) /uL VBG pH (7.33-7.43) VBG pCO2 (45-50) mmHg VBG pO2 (35-45) mmHg VBG HCO3 (24-28) mmol/L VBG Total CO2 (24-29) mmol/L VBG O2 Saturation (70-75) % VBG Base Excess (0-4) mmol/L Sodium (137-145) mmol/L Potassium (3.4-5.1) mmol/L Chloride (98-107) mmol/L Carbon Dioxide (22-32) mmol/L BUN (7-17) mg/dL Creatinine (0.52-1.04) mg/dL Estimated GFR (>60) mL/min BUN/Creatinine Ratio (6-22) Glucose (70-99) mg/dL POC Whole Bld Glucose (70-99) mg/dL Hemoglobin A1c (4.0-6.0) % Calcium (8.4-10.2) mg/dL Magnesium (1.6-2.3) mg/dL Total Bilirubin (0.2-1.3) mg/dL AST (14-36) IU/L ALT (<35) IU/L Alkaline Phosphatase (38-126) U/L Total Creatine Kinase (30-135) U/L Troponin I (0.01-0.034) ng/mL Total Protein (6.3-8.2) g/dL Albumin (3.5-5.0) g/dL Globulin (1.7-4.1) g/dL Albumin/Globulin Ratio (1.0-2.8) Lipase (23-300) U/L Urine Color Yellow Urine Appearance Clear Urine pH 5.5 (4.5-8.0) Ur Specific [place] 1.010 (1.000-1.035) Urine Protein Negative (Negative) Urine Glucose (UA) 3+ H (Negative) g/dL Urine Ketones Negative (NEGATIVE) Urine Occult Blood Negative (Negative) Urine Nitrate Negative (Negative) Urine Bilirubin Negative (NEGATIVE) Urine Urobilinogen 0.2 (0.2) E.U./dL Ur Leukocyte Esterase Negative (NEGATIVE) Urine RBC 0-1/hpf (0-5/HPF) Urine WBC 1-5/hpf (0-5/HPF) Ur Squamous Epith Cells 0-1 /hpf (0-5/HPF) Urine Bacteria None seen (None) Ur Culture Indicated? Cult not indicated Vol Urine Centrifuged 10ml (spun) Ketones (<0.27) mmol/L Point of Care Testing Glucose POC 322 Point of care testing: Point of Care Testing Glucose POC 322 Discharge Plan Departure Patient Disposition: Admitted As Inpatient Clinical Impression: Acute lower GI bleeding, Anemia
[2025-03-03] VITALS (9 sets, daily range): BP systolic 105–142; BP diastolic 37–59; PULSE 77–96; RESP 16–20; TEMP 35.9–36.3; O2SAT 95–99; BMI 44.6
--- NOTE | 2025-03-03 00:35 | PC.ADMIT ---
[id number] [place] Admission Note: Pt arrived via stretcher from ED to room 223 at approximately 2350. A&Ox4, on 2L NC lungs diminished but clear. Requesting to keep own clothing on at this time. Spouse Jona at bedside. RT setting up CPAP. Provider notified of pt arrival. Pt oriented to room and call light. Call light within reach, care ongoing. The patient,Vivien Santos,59 y/o, was given written information regarding hospital policies, unit procedures and contact persons. Patient's smoking status: Never smoker. Vital Signs - 8 hr 03/02/25 19:53 03/02/25 19:59 03/02/25 20:17 Temperature 98.5 F Pulse Rate 119 H 114 H 102 H Respiratory Rate 22 22 14 Blood Pressure 101/58 L 114/56 L Pulse Oximetry 98 97 97 Oxygen Delivery Method Nasal Cannula Nasal Cannula Oxygen Flow Rate 2 2 03/02/25 20:18 03/02/25 20:18 03/02/25 20:30 Temperature Pulse Rate 99 H 97 H Respiratory Rate 20 30 H Blood Pressure 121/58 L Pulse Oximetry 97 97 Oxygen Delivery Method Oxygen Flow Rate 03/02/25 20:30 03/02/25 21:00 03/02/25 21:00 Temperature Pulse Rate 96 H Respiratory Rate 20 Blood Pressure 116/54 L 114/55 L Pulse Oximetry 98 Oxygen Delivery Method Oxygen Flow Rate 03/02/25 21:30 03/02/25 21:31 03/02/25 21:31 Temperature Pulse Rate 93 H 97 H Respiratory Rate 39 H 25 H Blood Pressure 93/49 L Pulse Oximetry 99 98 Oxygen Delivery Method Oxygen Flow Rate 03/02/25 21:32 03/02/25 21:32 03/02/25 21:59 Temperature Pulse Rate 92 H 94 H Respiratory Rate 20 18 Blood Pressure 98/45 L Pulse Oximetry 99 99 Oxygen Delivery Method Oxygen Flow Rate 03/02/25 21:59 03/02/25 22:00 03/02/25 22:00 Temperature Pulse Rate 94 H Respiratory Rate 17 Blood Pressure 106/51 L 115/56 L Pulse Oximetry 99 Oxygen Delivery Method Oxygen Flow Rate 03/02/25 22:24 03/02/25 22:24 03/02/25 22:30 Temperature Pulse Rate 109 H 97 H Respiratory Rate 30 H 16 Blood Pressure 136/62 Pulse Oximetry 98 98 Oxygen Delivery Method Oxygen Flow Rate 03/02/25 22:31 03/02/25 22:31 03/02/25 23:40 Temperature Pulse Rate 98 H 99 H Respiratory Rate 22 19 Blood Pressure 120/56 L 121/56 L Pulse Oximetry 99 97 Oxygen Delivery Method Room Air Oxygen Flow Rate 03/03/25 00:32 03/03/25 00:33 Temperature 97.4 F L Pulse Rate 89 Respiratory Rate 20 Blood Pressure 140/59 L Pulse Oximetry 98 Oxygen Delivery Method Nasal Cannula Oxygen Flow Rate 2
--- NOTE | 2025-03-03 02:17 | PM.HP.1 ---
History of Present Illness History of Present Illness Date Patient Seen: 03/03/25 Time Patient Seen: 02:17 Chief complaint: 465 Sugar Level, Diabetic Narrative: The pt is a 59 yo with a hx of COPD on 2 lpm NC, BRIGID on CPAP at night and A-fib on Eliquis who presents to the ER for fatigue and SOB. She was found to have a hgb of 8.3 & previously it was 12 gm in November. The pt reports that her stools have been dark brown for the past month but did not seek medical attention for this until tonight. She denies balck tarry stools, no blood in stools, no hematochezia, pain on defecation, has about one stool per day and last Colonoscopy was in 2021 which she states was clean. Her glucose has been high at home for the past month and for the past 2 weeks her home accuchecks have been in the 400's. She is on 2 lpm chronically and uses CPAP as mentioned above. RA SaO2 during my interview was 96%. [facility] Medical History (Updated 03/03/25 @ 00:03 by Luisa Alejandre RN) Asthma Social History household members: spouse Smoking Status: Never smoker Meds Home Medications and Allergies Home Medications ?Medication ?Instructions ?Recorded ?Confirmed ?Type albuterol sulfate 90 mcg/actuation 1 puff inhalation Q4H PRN 03/03/25 03/03/25 History aerosol inhaler shortness of breath or wheezing apixaban 5 mg tablet (Eliquis) 5 mg PO BID 03/03/25 03/03/25 History empagliflozin 25 mg tablet 25 mg PO DAILY 03/03/25 03/03/25 History (Jardiance) fluticasone furoate 200 1 inh inhalation DAILY 03/03/25 03/03/25 History mcg/actuation blister powder for inhalation (Arnuity Ellipta) glimepiride 2 mg tablet 2 mg PO BID 03/03/25 03/03/25 History insulin glargine 100 unit/mL (3 64 unit SUBCUT DAILY 03/03/25 03/03/25 History mL) subcutaneous pen (Lantus Solostar U-100 Insulin) lisinopril 10 mg tablet 10 mg PO DAILY 03/03/25 03/03/25 History metformin 1,000 mg tablet 1,000 mg PO BID 03/03/25 03/03/25 History montelukast 10 mg tablet 10 mg PO DAILY 03/03/25 03/03/25 History salmeterol 50 mcg/dose blister 2 inh inhalation BID 03/03/25 03/03/25 History powder for inhalation (Serevent Diskus) Allergies Allergy/AdvReac Type Severity Reaction Status Date / Time No Known Drug Allergies Allergy Verified 11/28/22 14:52 Exam Vital Signs (past 8 hours): - 03/02/25 19:53 03/02/25 19:59 03/02/25 20:17 Temperature 98.5 F Pulse Rate 119 H 114 H 102 H Respiratory Rate 22 22 14 Blood Pressure 101/58 L 114/56 L Pulse Oximetry 98 97 97 Oxygen Delivery Method Nasal Cannula Nasal Cannula Oxygen Flow Rate 2 2 03/02/25 20:18 03/02/25 20:18 03/02/25 20:30 Temperature Pulse Rate 99 H 97 H Respiratory Rate 20 30 H Blood Pressure 121/58 L Pulse Oximetry 97 97 Oxygen Delivery Method Oxygen Flow Rate 03/02/25 20:30 03/02/25 21:00 03/02/25 21:00 Temperature Pulse Rate 96 H Respiratory Rate 20 Blood Pressure 116/54 L 114/55 L Pulse Oximetry 98 Oxygen Delivery Method Oxygen Flow Rate 03/02/25 21:30 03/02/25 21:31 03/02/25 21:31 Temperature Pulse Rate 93 H 97 H Respiratory Rate 39 H 25 H Blood Pressure 93/49 L Pulse Oximetry 99 98 Oxygen Delivery Method Oxygen Flow Rate 03/02/25 21:32 03/02/25 21:32 03/02/25 21:59 Temperature Pulse Rate 92 H 94 H Respiratory Rate 20 18 Blood Pressure 98/45 L Pulse Oximetry 99 99 Oxygen Delivery Method Oxygen Flow Rate 03/02/25 21:59 03/02/25 22:00 03/02/25 22:00 Temperature Pulse Rate 94 H Respiratory Rate 17 Blood Pressure 106/51 L 115/56 L Pulse Oximetry 99 Oxygen Delivery Method Oxygen Flow Rate 03/02/25 22:24 03/02/25 22:24 03/02/25 22:30 Temperature Pulse Rate 109 H 97 H Respiratory Rate 30 H 16 Blood Pressure 136/62 Pulse Oximetry 98 98 Oxygen Delivery Method Oxygen Flow Rate 03/02/25 22:31 03/02/25 22:31 03/02/25 23:40 Temperature Pulse Rate 98 H 99 H Respiratory Rate 22 19 Blood Pressure 120/56 L 121/56 L Pulse Oximetry 99 97 Oxygen Delivery Method Room Air Oxygen Flow Rate 03/03/25 00:32 03/03/25 00:33 03/03/25 00:53 Temperature 97.4 F L Pulse Rate 89 Respiratory Rate 20 Blood Pressure 140/59 L Pulse Oximetry 98 99 Oxygen Delivery Method Nasal Cannula CPAP Oxygen Flow Rate 2 4 Oxygen Delivery Method CPAP Oxygen Flow Rate 4 Const General: cooperative, healthy appearing and comfortable Resp Effort & Inspection: normal respiratory effort Auscultation: clear to auscultation bilaterally Cardio Rate: regular rate Rhythm: regular rhythm GI Inspection: obesity Palpation: soft Auscultation: normal bowel sounds Objective Labs 03/02/25 20:38 03/02/25 20:38 Labs: Laboratory Results - last 24 hr 03/02/25 03/02/25 03/02/25 20:07 20:36 20:38 WBC 10.4 RBC 3.68 L Hgb 8.3 L Hct 26.2 L MCV 71.2 L MCH 22.5 L MCHC 31.7 RDW 17.2 H Plt Count 492 H Neut % (Auto) 75.0 Lymph % (Auto) 15.5 L [place] % (Auto) 4.9 Eos % (Auto) 4.0 Baso % (Auto) 0.6 Neut # (Auto) 7800 H Lymph # (Auto) 1600 [place] # (Auto) 500 Eos # (Auto) 400 Baso # (Auto) 100 VBG pH 7.46 H VBG pCO2 34.3 L VBG pO2 38 VBG HCO3 24 VBG Total CO2 23 L VBG O2 Saturation 76 H VBG Base Excess 0.8 Sodium 133 L Potassium 4.3 Chloride 98 Carbon Dioxide 26 BUN 36 H Creatinine 1.55 H Estimated GFR 38 L BUN/Creatinine Ratio 23.2 H Glucose 290 H POC Whole Bld Glucose 322 H Hemoglobin A1c 8.0 H Calcium 9.2 Magnesium 2.3 Total Bilirubin 0.2 AST 28 ALT 27 Alkaline Phosphatase 71 Total Creatine Kinase 37 Troponin I < 0.012 Total Protein 6.9 Albumin 4.0 Globulin 2.9 Albumin/Globulin Ratio 1.4 Lipase 149 Urine Color Urine Appearance Urine pH Ur Specific [place] Urine Protein Urine Glucose (UA) Urine Ketones Urine Occult Blood Urine Nitrate Urine Bilirubin Urine Urobilinogen Ur Leukocyte Esterase Urine RBC Urine WBC Ur Squamous Epith Cells Urine Bacteria Ur Culture Indicated? Vol Urine Centrifuged Ketones 0.09 03/02/25 03/03/25 22:27 00:02 WBC RBC Hgb Hct MCV MCH MCHC RDW Plt Count Neut % (Auto) Lymph % (Auto) [place] % (Auto) Eos % (Auto) Baso % (Auto) Neut # (Auto) Lymph # (Auto) [place] # (Auto) Eos # (Auto) Baso # (Auto) VBG pH VBG pCO2 VBG pO2 VBG HCO3 VBG Total CO2 VBG O2 Saturation VBG Base Excess Sodium Potassium Chloride Carbon Dioxide BUN Creatinine Estimated GFR BUN/Creatinine Ratio Glucose POC Whole Bld Glucose 159 H D Hemoglobin A1c Calcium Magnesium Total Bilirubin AST ALT Alkaline Phosphatase Total Creatine Kinase Troponin I Total Protein Albumin Globulin Albumin/Globulin Ratio Lipase Urine Color Yellow Urine Appearance Clear Urine pH 5.5 Ur Specific [place] 1.010 Urine Protein Negative Urine Glucose (UA) 3+ H Urine Ketones Negative Urine Occult Blood Negative Urine Nitrate Negative Urine Bilirubin Negative Urine Urobilinogen 0.2 Ur Leukocyte Esterase Negative Urine RBC 0-1/hpf Urine WBC 1-5/hpf Ur Squamous Epith Cells 0-1 /hpf Urine Bacteria None seen Ur Culture Indicated? Cult not indicated Vol Urine Centrifuged 10ml (spun) Ketones Assessment & Plan Assessment & Plan narrative: I have discussed the pt's symptoms and labs with imaging with the Er provider and agree with the decision for admission. I have reviewed the CT abd showing no abnormalities, and reviewed the labs personally showing a Hgb of 8.3 with a MCV of 71, Cr of 1.55, A1C of 8, Na of 133. 1. Anemia- possible GI bleed with microcytia- I have ordered iron studies which are pending, will trend the hgb every 6 hours, hem check stools, Gen surgery has been consulted through the Er, Dr. Jin will see in AM to evaluate if another colonoscopy is needed. With the lack of obvious bleeding and lack of frequency, this may not be necessary at this time, but will need to see how low the hgb goes. 2. Atrial Fibrillation- home meds have been restarted, HR stable, holding the Eliquis until we can determine the cause of the anemia 3. LISS- Cr is 1.55 today, uncertain cause, will start the pt on IVF, recheck GFR in am, 4. DM type II- checked A1C, elevated, starting on accuchecks Q6, with a high dose insulin sliding scale. 5. BRIGID with morbid obesity 6. Oxygen dependent COPD- on 2 lpm at home, I, Dr. Cisco Briggs in [place] has seen and evaluated Vivien Santos in [place] with the aide of audio/video telemedicine devices with the pt's consult and nursing assistance Time-Based Coding :: [TOTAL MINUTES] spent with patient and on the chart (including review of chart, obtaining history, exam, reviewing outside data, placing orders, documenting exam and treatment plan, and counseling patient) on [DATE].
[2025-03-03 05:52] LABS: Add Manual Diff / Slide Review NO; Hematocrit 26.4 % (36-46); Hemoglobin 7.4 g/dL (12.0-16.0); Lymphocytes Absolute Auto 1800 /uL (1100-4500); Mean Corpuscular HGB Conc 28.1 % (30-36); Mean Corpuscular Hemoglobin 20.2 PG (26-34); Mean Corpuscular Volume 71.7 fL (80-100); Platelet Count 483 X10^3/uL (150-400)
[2025-03-03 06:03] LABS: Blood Urea Nitrogen 36 mg/dL (7-17); Calcium 8.8 mg/dL (8.4-10.2); Carbon Dioxide 22 mmol/L (22-32); Chloride 104 mmol/L (98-107); Estimated Glomerular Filt Rate 43 mL/min (>60); Glucose 179 mg/dL (70-99); HEMOLYSIS < 15 (0-50); Potassium 4.5 mmol/L (3.4-5.1); Sodium 134 mmol/L (137-145)
[2025-03-03 06:23] LABS: HEMOLYSIS < 15 (0-50); Iron 33 ug/dL (37-170)
[2025-03-03 06:32] LABS: Transferrin 363 mg/dL (206-381)
[2025-03-03 06:33] LABS: Percent Iron Saturation 7 % (15-50); Total Iron Binding Capacity 451 ug/dL (265-497)
[2025-03-03] MEDS: DEXTROSE 5%-0.9% NS 1,000 ML 100 ML IV (06:58)
[2025-03-03] MEDS: INSULIN LISPRO 100 UNIT/ML 3ML VIAL SUBCUT ×4 (08:04→21:45)
[2025-03-03] MEDS: PANTOPRAZOLE 40 MG VIAL IV (08:07)
--- NOTE | 2025-03-03 11:29 | PM.HP.1 ---
History of Present Illness History of Present Illness Date Patient Seen: 03/03/25 Chief complaint: 465 Sugar Level, Diabetic Narrative: Chief complaint: Fatigue shortness for breath and anemia History of present illness: 03/03: 59 yo with a hx of COPD on 2 lpm NC, BRIGID on CPAP at night and A-fib on Eliquis who presents to the ER for fatigue and SOB. She was found to have a hgb of 8.3 & previously it was 12 gm in November. The pt reports that her stools have been dark brown for the past month but did not seek medical attention for this until tonight. She denies balck tarry stools, no blood in stools, no hematochezia, pain on defecation, has about one stool per day and last Colonoscopy was in 2021 which she states was clean. Her glucose has been high at home for the past month and for the past 2 weeks her home accuchecks have been in the 400's. She is on 2 lpm chronically and uses CPAP Hospital course: 03/03: Patient had orthostasis and hypotension at 11:30 a.m. CBC drawn and 1 L of fluid resuscitation normal saline ordered patient no longer symptomatic tolerating diet hemoglobin 7.3 up on repeat Review of systems: No headache diplopia blurred vision weakness today No chest pain palpitations shortness No bone pain no vomiting No urinary symptom Physical exam: No acute distress alert and oriented HEENT unremarkable Neck no carotid bruits or JVD Heart rate and rhythm regular Abdomen nontender Extremities no edema Assessment and plan: 1. Anemia- possible GI bleed with microcytia- I have ordered iron studies which are pending, will trend the hgb every 6 hours, hem check stools, Gen surgery has been consulted through the Er, Dr. Jin will see in AM to evaluate If another colonoscopy is needed. With the lack of obvious bleeding and lack of frequency, this may not be necessary at this time, but will need to see how low the hgb goes. We will need to replace iron 2. Atrial Fibrillation- Home meds have been restarted, HR stable, holding the Eliquis until we can determine the cause of the anemia 3. LISS- Cr is 1.55 today, uncertain cause, will start the pt on IVF, recheck GFR improved 4. DM type II- checked A1C, elevated, starting on accuchecks Q6, with a high dose insulin sliding scale. 5. BRIGID with morbid obesity 6. Oxygen dependent COPD- on 2 lpm at home, DVT prophylaxis: Not indicate Code status: Full code Time-Based Coding :: 55 minutes spent with patient and on the chart (including review of chart, obtaining history, exam, reviewing outside data, placing orders, documenting exam and treatment plan, and counseling patient) [facility] Medical History (Updated 03/03/25 @ 00:03 by Luisa Alejandre RN) Asthma Social History household members: spouse Smoking Status: Never smoker Meds Home Medications and Allergies Home Medications ?Medication ?Instructions ?Recorded ?Confirmed ?Type albuterol sulfate 90 mcg/actuation 1 puff inhalation Q4H PRN 03/03/25 03/03/25 History aerosol inhaler shortness of breath or wheezing apixaban 5 mg tablet (Eliquis) 5 mg PO BID 03/03/25 03/03/25 History empagliflozin 25 mg tablet 25 mg PO DAILY 03/03/25 03/03/25 History (Jardiance) fluticasone furoate 200 1 inh inhalation DAILY 03/03/25 03/03/25 History mcg/actuation blister powder for inhalation (Arnuity Ellipta) glimepiride 2 mg tablet 2 mg PO BID 03/03/25 03/03/25 History insulin glargine 100 unit/mL (3 64 unit SUBCUT DAILY 03/03/25 03/03/25 History mL) subcutaneous pen (Lantus Solostar U-100 Insulin) lisinopril 10 mg tablet 10 mg PO DAILY 03/03/25 03/03/25 History metformin 1,000 mg tablet 1,000 mg PO BID 03/03/25 03/03/25 History montelukast 10 mg tablet 10 mg PO DAILY 03/03/25 03/03/25 History salmeterol 50 mcg/dose blister 2 inh inhalation BID 03/03/25 03/03/25 History powder for inhalation (Serevent Diskus) Allergies Allergy/AdvReac Type Severity Reaction Status Date / Time No Known Drug Allergies Allergy Verified 11/28/22 14:52 Exam Vital Signs (past 8 hours): - 03/03/25 07:43 03/03/25 07:43 03/03/25 08:30 Temperature 97.2 F L Pulse Rate 77 Respiratory Rate 16 Blood Pressure 124/43 L Pulse Oximetry 97 99 Oxygen Delivery Method Nasal Cannula Nasal Cannula Oxygen Flow Rate 2 2 03/03/25 11:16 Temperature 96.6 F L Pulse Rate 78 Respiratory Rate 17 Blood Pressure 105/37 L Pulse Oximetry 95 Oxygen Delivery Method Oxygen Flow Rate 2 Oxygen Delivery Method Nasal Cannula Oxygen Flow Rate 2 Objective Labs 03/03/25 11:30 03/03/25 04:50 Labs: Laboratory Results - last 24 hr 03/02/25 03/02/25 03/02/25 20:07 20:36 20:38 WBC 10.4 RBC 3.68 L Hgb 8.3 L Hct 26.2 L MCV 71.2 L MCH 22.5 L MCHC 31.7 RDW 17.2 H Plt Count 492 H Neut % (Auto) 75.0 Lymph % (Auto) 15.5 L [place] % (Auto) 4.9 Eos % (Auto) 4.0 Baso % (Auto) 0.6 Neut # (Auto) 7800 H Lymph # (Auto) 1600 [place] # (Auto) 500 Eos # (Auto) 400 Baso # (Auto) 100 VBG pH 7.46 H VBG pCO2 34.3 L VBG pO2 38 VBG HCO3 24 VBG Total CO2 23 L VBG O2 Saturation 76 H VBG Base Excess 0.8 Sodium 133 L Potassium 4.3 Chloride 98 Carbon Dioxide 26 BUN 36 H Creatinine 1.55 H Estimated GFR 38 L BUN/Creatinine Ratio 23.2 H Glucose 290 H POC Whole Bld Glucose 322 H Hemoglobin A1c 8.0 H Calcium 9.2 Magnesium 2.3 Iron TIBC % Saturation Transferrin Total Bilirubin 0.2 AST 28 ALT 27 Alkaline Phosphatase 71 Total Creatine Kinase 37 Troponin I < 0.012 Total Protein 6.9 Albumin 4.0 Globulin 2.9 Albumin/Globulin Ratio 1.4 Lipase 149 Urine Color Urine Appearance Urine pH Ur Specific [place] Urine Protein Urine Glucose (UA) Urine Ketones Urine Occult Blood Urine Nitrate Urine Bilirubin Urine Urobilinogen Ur Leukocyte Esterase Urine RBC Urine WBC Ur Squamous Epith Cells Urine Bacteria Ur Culture Indicated? Vol Urine Centrifuged Ketones 0.09 03/02/25 03/03/25 03/03/25 22:27 00:02 04:50 WBC 8.4 RBC 3.68 L Hgb 7.4 L Hct 26.4 L MCV 71.7 L MCH 20.2 L MCHC 28.1 L D RDW 17.4 H Plt Count 483 H Neut % (Auto) 64.5 Lymph % (Auto) 21.4 L [place] % (Auto) 8.1 Eos % (Auto) 5.4 H Baso % (Auto) 0.6 Neut # (Auto) 5400 Lymph # (Auto) 1800 [place] # (Auto) 700 Eos # (Auto) 500 H Baso # (Auto) 100 VBG pH VBG pCO2 VBG pO2 VBG HCO3 VBG Total CO2 VBG O2 Saturation VBG Base Excess Sodium 134 L Potassium 4.5 Chloride 104 Carbon Dioxide 22 BUN 36 H Creatinine 1.39 H Estimated GFR 43 L BUN/Creatinine Ratio 25.9 H Glucose 179 H D POC Whole Bld Glucose 159 H D Hemoglobin A1c Calcium 8.8 Magnesium Iron 33 L TIBC 451 % Saturation 7 L Transferrin 363 Total Bilirubin AST ALT Alkaline Phosphatase Total Creatine Kinase Troponin I Total Protein Albumin Globulin Albumin/Globulin Ratio Lipase Urine Color Yellow Urine Appearance Clear Urine pH 5.5 Ur Specific [place] 1.010 Urine Protein Negative Urine Glucose (UA) 3+ H Urine Ketones Negative Urine Occult Blood Negative Urine Nitrate Negative Urine Bilirubin Negative Urine Urobilinogen 0.2 Ur Leukocyte Esterase Negative Urine RBC 0-1/hpf Urine WBC 1-5/hpf Ur Squamous Epith Cells 0-1 /hpf Urine Bacteria None seen Ur Culture Indicated? Cult not indicated Vol Urine Centrifuged 10ml (spun) Ketones 03/03/25 03/03/25 06:25 11:25 WBC RBC Hgb Hct MCV MCH MCHC RDW Plt Count Neut % (Auto) Lymph % (Auto) [place] % (Auto) Eos % (Auto) Baso % (Auto) Neut # (Auto) Lymph # (Auto) [place] # (Auto) Eos # (Auto) Baso # (Auto) VBG pH VBG pCO2 VBG pO2 VBG HCO3 VBG Total CO2 VBG O2 Saturation VBG Base Excess Sodium Potassium Chloride Carbon Dioxide BUN Creatinine Estimated GFR BUN/Creatinine Ratio Glucose POC Whole Bld Glucose 181 H 180 H Hemoglobin A1c Calcium Magnesium Iron TIBC % Saturation Transferrin Total Bilirubin AST ALT Alkaline Phosphatase Total Creatine Kinase Troponin I Total Protein Albumin Globulin Albumin/Globulin Ratio Lipase Urine Color Urine Appearance Urine pH Ur Specific [place] Urine Protein Urine Glucose (UA) Urine Ketones Urine Occult Blood Urine Nitrate Urine Bilirubin Urine Urobilinogen Ur Leukocyte Esterase Urine RBC Urine WBC Ur Squamous Epith Cells Urine Bacteria Ur Culture Indicated? Vol Urine Centrifuged Ketones Assessment & Plan Time-Based Coding :: [TOTAL MINUTES] spent with patient and on the chart (including review of chart, obtaining history, exam, reviewing outside data, placing orders, documenting exam and treatment plan, and counseling patient) on [DATE].
[2025-03-03] MEDS: SODIUM CHLORIDE 0.9% 1,000 ML 1000 ML IV (11:36)
[2025-03-03 11:37] LABS: Add Manual Diff / Slide Review NO; Hematocrit 23.1 % (36-46); Hemoglobin 7.3 g/dL (12.0-16.0); Lymphocytes Absolute Auto 1700 /uL (1100-4500); Mean Corpuscular HGB Conc 31.5 % (30-36); Mean Corpuscular Hemoglobin 22.4 PG (26-34); Mean Corpuscular Volume 71.2 fL (80-100); Platelet Count 435 X10^3/uL (150-400)
[2025-03-03] MEDS: SODIUM CHLORIDE 0.9% 1,000 ML 100 ML IV ×2 (12:52→21:58)
--- NOTE | 2025-03-03 14:41 | CM.DANOTE ---
Initial DCP Assessment Note Pt is a 59 yo female, living in her RV at [facility] with spouse, admitted for monitoring of anemia, afib, DM II with O2- 2L at baseline to help manage chronic COPD. PCP: Maury Collier- Mis MEZA Payer: [facility] Reviewed chart, pt discussed in multidisciplinary rounds this morning. General surgery consulting. If H+H stabilizes over the next 24 hrs, patient is likely to be discharged home with outpatient colonoscopy. If H+H continues to drop, patient is likely to remain admitted for colonoscopy to be done, at the earliest, Monday 03/05. Patient currently lives with spouse in an RV, independent. Spouse is a cone trucker that works nights. Patient denies current needs from this SW team. No barriers identified at this time to patient's safe discharge home w/spouse to assist as needed; close outpatient f/u recommended. Social work team will plan to follow clinical course closely in case any DC needs or concerns arise. DELVIN Vazquez Discharge Planning/Care Management CM Discharge Assessment Start: 03/02/25 23:28 Freq: Status: Active Protocol: Document 03/03/25 14:38 ATIYA (Rec: 03/03/25 14:40 [email or web address] [email or web address]) Discharge Planning Assessment Assigned Discharge DELVIN Grider Branch Director DPOA/Assigned Jona Sherman [phone] Designee Name Advance Directives? No History Provided By Patient Prior Living RV Arrangements Household Members spouse Type of Drives own vehicle transporation used prior to admit Independent with ADL Yes 's Is patient alert and Yes oriented? Comment Independent Comment Home to RV Barriers to No Discharge Discharge Plan Home Transportation Spouse Arrangement Referrals Initiated None needed
[2025-03-03] MEDS: ALBUTEROL 2.5 MG/3 ML NEB (ADULT) INH ×2 (17:37→21:45)
[2025-03-03] MEDS: BUDESONIDE 0.5 MG/2 ML NEB INH (17:37)
[2025-03-04 00:17] LABS: Folate 6.0 ng/mL (2.76-20.0); Vitamin B12 292 pg/mL (239-931)
[2025-03-04 05:53] LABS: Add Manual Diff / Slide Review NO; Hematocrit 23.2 % (36-46); Hemoglobin 7.4 g/dL (12.0-16.0); Lymphocytes Absolute Auto 1400 /uL (1100-4500); Mean Corpuscular HGB Conc 31.7 % (30-36); Mean Corpuscular Hemoglobin 22.7 PG (26-34); Mean Corpuscular Volume 71.7 fL (80-100); Platelet Count 420 X10^3/uL (150-400)
[2025-03-04 08:00] VITALS: BP 126/51; PULSE 80; RESP 20; TEMP 36.2; O2SAT 99
[2025-03-04] MEDS: INSULIN LISPRO 100 UNIT/ML 3ML VIAL SUBCUT (08:07)
[2025-03-04] MEDS: PANTOPRAZOLE 40 MG VIAL IV (08:08)
[2025-03-04] MEDS: INSULIN GLARGINE 100 UNIT/ML 3ML PEN 64 UNIT SUBCUT (08:08)
--- NOTE | 2025-03-04 08:43 | P.DS_ITS ---
History of Present Illness History of Present Illness Date Patient Seen: 03/04/25 Chief complaint: 465 Sugar Level, Diabetic Narrative: Chief complaint: Fatigue shortness for breath and anemia History of present illness: 03/03: 59 yo with a hx of COPD on 2 lpm NC, BRIGID on CPAP at night and A-fib on Eliquis who presents to the ER for fatigue and SOB. She was found to have a hgb of 8.3 & previously it was 12 gm in November. The pt reports that her stools have been dark brown for the past month but did not seek medical attention for this until tonight. She denies balck tarry stools, no blood in stools, no hematochezia, pain on defecation, has about one stool per day and last Colonoscopy was in 2021 which she states was clean. Her glucose has been high at home for the past month and for the past 2 weeks her home accuchecks have been in the 400's. She is on 2 lpm chronically and uses CPAP Hospital course: 03/03: Patient had orthostasis and hypotension at 11:30 a.m. CBC drawn and 1 L of fluid resuscitation normal saline ordered patient no longer symptomatic tolerating diet hemoglobin 7.3 up on repeat 03/02: No further orthostasis no symptoms at this time hemoglobin stable at 7.3 B12 and folate wound reference range but B12 was a little low gave 1 dose 1000 mcg today and a prescription for iron Review of systems: No headache diplopia blurred vision weakness today No chest pain palpitations shortness No bone pain no vomiting No urinary symptom Physical exam: No acute distress alert and oriented HEENT unremarkable Neck no carotid bruits or JVD Heart rate and rhythm regular Abdomen nontender Extremities no edema Assessment and plan: 1. Anemia- possible GI bleed with iron deficiency * Follow up with the PCP and referral to Gastroenterology * We will need to replace iron for 3 months 2. Atrial Fibrillation- * Resume Eliquis after visit with PCP 3. LISS- Cr is 1.55 today, uncertain cause, will start the pt on IVF, recheck GFR improved 4. DM type II- checked A1C, elevated, starting on accuchecks Q6, with a high dose insulin sliding scale. 5. BRIGID with morbid obesity 6. Oxygen dependent COPD- on 2 lpm at home, DVT prophylaxis: * Not indicate Code status: * Full code Time-Based Coding :: 35 minutes spent with patient and on the chart (including review of chart, obtaining history, exam, reviewing outside data, placing orders, documenting exam and treatment plan, and counseling patient) Discharge Providers Provider Date of admission: 03/02/25 22:52 Discharge Date: 03/03/25 Consults: 03/02/25 23:01 Consult to Physician Routine Comment: Consulting Provider: Kodak Jin Reason for consultation: GI Bleed Has provider been notified: Yes 03/03/25 13:34 Consult to Dietitian, Adult Routine Comment: Reason For Exam: hyperglycemia Discharge provider: Franck Mazariegos MD Exam Vital Signs (past 8 hours): - 03/04/25 08:00 Temperature 97.1 F L Pulse Rate 80 Respiratory Rate 20 Blood Pressure 126/51 L Pulse Oximetry 99 Oxygen Flow Rate 2 Fraction of Inspired Oxygen 28 SaO2/FiO2 Ratio 350 Oxygen Delivery Method Nasal Cannula Oxygen Flow Rate 2 Objective Labs 03/04/25 04:33 03/04/25 08:56 Labs: Laboratory Results - last 24 hr 03/03/25 03/03/25 03/03/25 04:50 11:25 11:30 WBC 6.5 RBC 3.25 L Hgb 7.3 L Hct 23.1 L MCV 71.2 L MCH 22.4 L MCHC 31.5 D RDW 17.0 H Plt Count 435 H Neut % (Auto) 57.4 Lymph % (Auto) 25.8 [place] % (Auto) 9.3 Eos % (Auto) 6.7 H Baso % (Auto) 0.8 Neut # (Auto) 3700 Lymph # (Auto) 1700 [place] # (Auto) 600 Eos # (Auto) 400 Baso # (Auto) 100 POC Whole Bld Glucose 180 H Vitamin B12 292 Folate 6.0 Blood Type Antibody Screen 03/03/25 03/03/25 03/03/25 11:38 16:32 21:39 WBC RBC Hgb Hct MCV MCH MCHC RDW Plt Count Neut % (Auto) Lymph % (Auto) [place] % (Auto) Eos % (Auto) Baso % (Auto) Neut # (Auto) Lymph # (Auto) [place] # (Auto) Eos # (Auto) Baso # (Auto) POC Whole Bld Glucose 203 H 207 H Vitamin B12 Folate Blood Type A Positive Antibody Screen Negative 03/04/25 03/04/25 04:33 08:01 WBC 6.7 RBC 3.24 L Hgb 7.4 L Hct 23.2 L MCV 71.7 L MCH 22.7 L MCHC 31.7 RDW 17.4 H Plt Count 420 H Neut % (Auto) 63.1 Lymph % (Auto) 21.3 L [place] % (Auto) 7.9 Eos % (Auto) 6.9 H Baso % (Auto) 0.8 Neut # (Auto) 4200 Lymph # (Auto) 1400 [place] # (Auto) 500 Eos # (Auto) 500 H Baso # (Auto) 100 POC Whole Bld Glucose 227 H Vitamin B12 Folate Blood Type Antibody Screen [facility] Medical History (Updated 03/03/25 @ 00:03 by Luisa Alejandre RN) Asthma Social History household members: spouse Smoking Status: Never smoker Discharge Plan Discharge Plan Patient Disposition: Home Provider Discharge Comment: [place] up with Gastroenterology. Hold Eliquis until you see PCP or for one week. Discharge orders & Medications Prescriptions: [place] Carbonyl Iron 18 mg iron tablet,chewable 18 mg PO DAILY Qty: 90 0RF Continued albuterol sulfate 90 mcg/actuation HFA aerosol inhaler 1 puff inhalation Q4H PRN (Reason: shortness of breath or wheezing) glimepiride 2 mg tablet 2 mg PO BID metformin 1,000 mg tablet 1,000 mg PO BID lisinopril 10 mg tablet 10 mg PO DAILY montelukast 10 mg tablet 10 mg PO DAILY insulin glargine [Lantus Solostar U-100 Insulin] 100 unit/mL (3 mL) insulin pen 64 unit SUBCUT DAILY Patient Comments: [NO ORIGINAL SIG] Eliquis 5 mg tablet 5 mg PO BID Jardiance 25 mg tablet 25 mg PO DAILY Serevent Diskus 50 mcg/dose blister with device 2 inh inhalation BID Arnuity Ellipta 200 mcg/actuation blister with device 1 inh inhalation DAILY Medication counseling provided by Pharmacist: Yes Follow up/Referrals: [facility] [Other] Discharge Health Status Health Concerns: Follow up hemoglobin and hematocrit in 1 month follow up with PCP in [place] and referral to Gastroenterology Diet/Activity/Treatments Diet: Diet as Tolerated Visit Report/Discharge Packet Instructions: Gastrointestinal Bleeding Stand Alone Forms: Patient Portal/API, Stroke Signs & Symptoms
[2025-03-04] MEDS: CYANOCOBALAMIN 1,000 MCG/ML VIAL 1000 MCG IM (08:45)
[2025-03-04 09:19] LABS: Blood Urea Nitrogen 23 mg/dL (7-17); Calcium 9.0 mg/dL (8.4-10.2); Carbon Dioxide 24 mmol/L (22-32); Chloride 106 mmol/L (98-107); Estimated Glomerular Filt Rate 58 mL/min (>60); Glucose 212 mg/dL (70-99); HEMOLYSIS < 15 (0-50); Potassium 4.5 mmol/L (3.4-5.1); Sodium 137 mmol/L (137-145)
[2025-03-04 09:57] VITALS: PULSE 90; RESP 14; O2SAT 100
[2025-03-04] MEDS: BUDESONIDE 0.5 MG/2 ML NEB INH (09:57)
[2025-03-04] MEDS: ALBUTEROL 2.5 MG/3 ML NEB (ADULT) INH (09:57)
== END 2025-03-04 11:43 | disposition home or self-care (01) | DRG 378 ==
LOC: ED 21:19 → AC 22:52
PROVIDERS: Internal Medicine; Admitting Provider Internal Medicine; Emergency Provider Student in an Organized Health Care Education/Training Program; Referring Provider Student in an Organized Health Care Education/Training Program; Visit Provider Internal Medicine
DX: K92.2 Gastrointestinal hemorrhage, unspecified (principal); N17.9 Acute kidney failure, unspecified; Z68.41 Body mass index [BMI] 40.0-44.9, adult; E66.01 Morbid (severe) obesity due to excess calories; J44.9 Chronic obstructive pulmonary disease, unspecified; G47.33 Obstructive sleep apnea (adult) (pediatric); I48.91 Unspecified atrial fibrillation; E11.9 Type 2 diabetes mellitus without complications; I95.1 Orthostatic hypotension; D50.9 Iron deficiency anemia, unspecified; Z99.81 Dependence on supplemental oxygen; Z79.84 Long term (current) use of oral hypoglycemic drugs; Z79.01 Long term (current) use of anticoagulants; Z79.4 Long term (current) use of insulin
CPT/HCPCS: 36415; 71045; 74174; 80048; 80053; 81001; 82009; 82550; 82607; 82746; 82805; 82962; 83036; 83540; 83550; 83690; 83735; 84484; 85025; 86850; 86900; 86901; 93005; 94640; 94660; 96360; 99285; A9270; J1815; J2470; J3420; J7613; Q9967